=== PATIENT | male | born 1995 | race American Indian/Alaskan Native ===

== ENCOUNTER 2017-12-26 00:25 | Emergency (ER) | payer SELFPAY ==
[2017-12-26 02:05] VITALS: BP 109/55
[2017-12-26] MEDS ORDERED: TYLENOL PO ONE (02:05)
== END 2017-12-26 04:55 | disposition left against medical advice (07) ==
LOC: ED 00:25
DX: G43.909 Migraine, unspecified, not intractable, without status migrainosus (principal); Z53.21 Procedure and treatment not carried out due to patient leaving prior to being seen by health care provider

== ENCOUNTER 2019-05-19 02:08 | Emergency (ER) | payer OTHER ==
[2019-05-19 02:17] VITALS: BP 119/67
[2019-05-19] MEDS ORDERED: ACETAMINOPHEN 500 MG TAB PO ONE (03:15)
[2019-05-19 05:23] LABS: Bilirubin,Urine NEG (Negative); Blood,Urine NEG (Negative); Color,Urine Yellow (Yellow); Mucus,Urine FEW /HPF; Protein,Urine <15 mg/dL mg/dL (Negative)
--- NOTE | 2019-05-19 05:50 | Emergency Department Report ---
ED General Adult HPI - General Chief complaint: Pain General Stated complaint: HEADACHE,BODY PAIN, COLD X 3DAYS Source: patient Mode of arrival: Ambulatory Limitations: No Limitations - History of Present Illness Initial comments: Patient is a 24-year-old -[place] male with no past medical history who presents to the ED with complaint of acute onset persistent severe diffuse body aches and pains, chills, headache, low back pain, rule out of appetite for the last 2 days. Patient denies dizziness, chest pain, shortness of breath, nasal and sinus congestion, sore throat, cough, abdominal pain, dysuria, urinary frequency and urgency or hematuria. MD Complaint: Body aches, chills, low back pain, headache -: Sudden, days(s) (2) Location: head, back Radiation: back Severity scale (0 -10): 3 Quality: aching, sharp Consistency: constant Improves with: none Worsens with: none Associated Symptoms: denies other symptoms, fever/chills, headaches, loss of appetite, malaise. denies: confusion, chest pain, cough, diaphoresis, nausea/vomiting, rash, seizure, shortness of breath, syncope, weakness Treatments Prior to Arrival: NSAID - Related Data Previous Rx's Medication Instructions Recorded Last Taken Type Cyclobenzaprine [Flexeril] 10 mg PO Q8H PRN #15 tablet 05/19/19 Unknown Rx Ibuprofen [Motrin] 800 mg PO Q8HR PRN #20 tablet 05/19/19 Unknown Rx Ondansetron [Zofran Odt] 4 mg PO Q6HR PRN #15 tab.rapdis 05/19/19 Unknown Rx Allergies Allergy/AdvReac Type Severity Reaction Status Date / Time No Known Allergies Allergy Unverified 12/26/17 01:59 ED Review of Systems ROS: Stated complaint: HEADACHE,BODY PAIN, COLD X 3DAYS Other details as noted in HPI Constitutional: chills, fever, malaise, weakness Eyes: denies: eye pain, eye discharge, vision change ENT: denies: ear pain, throat pain, dental pain, congestion Respiratory: denies: cough, shortness of breath, wheezing Cardiovascular: denies: chest pain, palpitations Endocrine: no symptoms reported Gastrointestinal: denies: abdominal pain, nausea, vomiting, diarrhea Genitourinary: denies: urgency, dysuria Musculoskeletal: back pain, arthralgia, myalgia. denies: joint swelling Skin: denies: rash, lesions Neurological: headache. denies: weakness, paresthesias Psychiatric: denies: anxiety, depression Hematological/Lymphatic: denies: easy bleeding, easy bruising ED Past Medical Hx - Past Medical History Hx Asthma: Yes Additional medical history: migraines - Social History Smoking Status: Never Smoker Substance Use Type: None - Medications Home Medications: Home Medications Medication Instructions Recorded Confirmed Last Taken Type Cyclobenzaprine [Flexeril] 10 mg PO Q8H PRN #15 tablet 05/19/19 Unknown Rx Ibuprofen [Motrin] 800 mg PO Q8HR PRN #20 tablet 05/19/19 Unknown Rx Ondansetron [Zofran Odt] 4 mg PO Q6HR PRN #15 tab.rapdis 05/19/19 Unknown Rx ED Physical Exam - General Limitations: No Limitations General appearance: alert, in no apparent distress - Head Head exam: Present: atraumatic, normocephalic, normal inspection - Eye Eye exam: Present: normal appearance, PERRL, EOMI Pupils: Present: normal accommodation - ENT ENT exam: Present: normal exam, normal orophraynx, mucous membranes moist, TM's normal bilaterally, normal external ear exam - Neck Neck exam: Present: normal inspection, full ROM - Respiratory Respiratory exam: Present: normal lung sounds bilaterally. Absent: respiratory distress, wheezes, rhonchi, chest wall tenderness, decreased breath sounds, prolonged expiratory - Cardiovascular Cardiovascular Exam: Present: regular rate, normal rhythm, normal heart sounds. Absent: systolic murmur, diastolic murmur, rubs, gallop - GI/Abdominal GI/Abdominal exam: Present: soft, normal bowel sounds. Absent: tenderness, guarding, hyperactive bowel sounds, hypoactive bowel sounds, organomegaly - Rectal Rectal exam: Present: deferred - Extremities Exam Extremities exam: Present: normal inspection, full ROM, normal capillary refill - Back Exam Back exam: Present: normal inspection, full ROM, muscle spasm, paraspinal tenderness. Absent: tenderness - Neurological Exam Neurological exam: Present: alert, oriented X3, CN II-XII intact, normal gait, reflexes normal - Psychiatric Psychiatric exam: Present: normal affect, normal mood - Skin Skin exam: Present: warm, dry, intact, normal color. Absent: rash ED Course Vital Signs 05/19/19 05/19/19 05/19/19 02:15 03:15 04:15 Temperature 98.5 F Pulse Rate 82 Respiratory 18 16 16 Rate Blood Pressure 119/67 O2 Sat by Pulse 97 Oximetry - Reevaluation(s) Reevaluation #1: 05/19/19 05:51 This is a 24-year-old male who presented to the ED with flulike symptoms characterized by diffuse body aches and pains, low back pain, lack of appetite, chills and headache for the last 2 days. In the ED, patient is alert and oriented 3 and is not in distress with normal vital signs. Patient was treated for pain in the ED and urinalysis test results are nonactionable. Patient was discharged home on medications for pain and advised to follow-up with his primary care physician in 7-10 days for reevaluation, or return to the ED immediately if symptoms get worse. ED Medical Decision Making - Medical Decision Making This is a 24-year-old male who presented to the ED with flulike symptoms characterized by diffuse body aches and pains, low back pain, lack of appetite, chills and headache for the last 2 days. In the ED, patient is alert and oriented 3 and is not in distress with normal vital signs. Patient was treated for pain in the ED and urinalysis test results are nonactionable. Patient was discharged home on medications for pain and advised to follow-up with his primary care physician in 7-10 days for reevaluation, or return to the ED immediately if symptoms get worse. - Differential Diagnosis Flu like; muscle spasms; Muscle strain; Low back pain Critical care attestation.: If time is entered above; I have spent that time in minutes in the direct care of this critically ill patient, excluding procedure time. ED Disposition Clinical Impression: Spasm of muscle of lower back, Flu-like symptoms Disposition: DC-01 TO HOME OR SELFCARE Is pt being admited?: No Does the pt Need Aspirin: No Condition: Stable Instructions: Muscle Spasm (ED), Acute Low Back Pain (ED) Additional Instructions: Take medications with food, drink plenty of fluids and follow-up with your primary care physician in 7-10 days for reevaluation. Return to the ED immediately if symptoms get worse. Prescriptions: Cyclobenzaprine [Flexeril] 10 mg PO Q8H PRN #15 tablet PRN Reason: Muscle Spasm Ibuprofen [Motrin] 800 mg PO Q8HR PRN #20 tablet PRN Reason: Pain , Severe (7-10) Ondansetron [Zofran Odt] 4 mg PO Q6HR PRN #15 tab.rapdis PRN Reason: Nausea Referrals: PRIMARY CARE,MD [Primary Care Provider] - 3-5 Days Forms: Work/School Release Form(ED) Time of Disposition: 05:46 Print Language: AMHARIC
== END 2019-05-19 05:50 | disposition home or self-care (01) ==
LOC: ED 02:08
DX: M62.830 Muscle spasm of back (principal); J45.909 Unspecified asthma, uncomplicated; G43.909 Migraine, unspecified, not intractable, without status migrainosus; Z79.899 Other long term (current) drug therapy
CPT/HCPCS: 81001

== ENCOUNTER 2019-05-27 17:11 | Emergency (ER) | payer SELFPAY ==
[2019-05-27 17:42] VITALS: BP 105/68
== END 2019-05-27 17:16 | disposition left against medical advice (07) ==
LOC: ED 17:11
DX: M54.5 Low back pain (principal); Z53.21 Procedure and treatment not carried out due to patient leaving prior to being seen by health care provider

== ENCOUNTER 2021-01-17 22:26 | Emergency (ER) | payer SELFPAY ==
[2021-01-18 00:09] VITALS: BP 120/44
[2021-01-18] MEDS ORDERED: NEOMY 3.5 MG/BACIT 400 UNITS/POLY B 5000 UNITS/GM OINT PACKET TP ONE (01:19)
--- NOTE | 2021-01-18 01:24 | Emergency Department Report ---
ED General Adult HPI - General Chief complaint: Wound/Laceration Stated complaint: LACERATION RT HAND Time Seen by Provider: 01/18/21 01:02 Source: patient Mode of arrival: Ambulatory Limitations: No Limitations - History of Present Illness Initial comments: 25-year-old [id number] male patient presents emergency department with complaints of laceration to his right hand occurring a few hours ago. Patient states he excellently cut himself while using a knife. Tetanus is up-to-date. Denies wrist pain, paresthesias, numbness, weakness, foreign body sensation. Denies all other complaints at this time. - Related Data Previous Rx's Medication Instructions Recorded Last Taken Type Ondansetron [Zofran Odt] 4 mg PO Q6HR PRN #15 tab.rapdis 05/19/19 Unknown Rx Cyclobenzaprine [Flexeril 10 MG 10 mg PO Q8H PRN #15 tablet 02/01/20 Unknown Rx TAB] Doxycycline Hyclate [Doxycycline 100 mg PO Q12HR #20 tab 02/01/20 Unknown Rx Hyclate TAB] Ibuprofen [Motrin 800 MG tab] 800 mg PO Q8HR PRN #20 tablet 02/01/20 Unknown Rx Allergies Allergy/AdvReac Type Severity Reaction Status Date / Time No Known Allergies Allergy Verified 02/01/20 08:20 ED Review of Systems ROS: Stated complaint: LACERATION RT HAND Other details as noted in HPI Other: GENERAL: Negative for fever. CARDIOVASCULAR: Negative for chest pain. PULMONARY: Negative for shortness of breath. GASTROINTESTINAL: Negative for abdominal pain. MUSCULOSKELETAL: Negative for back pain. NEUROLOGICAL: Negative for headache. INTEGUMENTARY: Positive for laceration. ED Past Medical Hx - Past Medical History Previous Medical History?: Yes Hx GERD: Yes Hx Asthma: Yes Additional medical history: migraines - Surgical History Past Surgical History?: No - Social History Smoking Status: Never Smoker Substance Use Type: None - Medications Home Medications: Home Medications Medication Instructions Recorded Confirmed Last Taken Type Ondansetron [Zofran Odt] 4 mg PO Q6HR PRN #15 tab.rapdis 05/19/19 Unknown Rx Cyclobenzaprine [Flexeril 10 MG 10 mg PO Q8H PRN #15 tablet 02/01/20 Unknown Rx TAB] Doxycycline Hyclate [Doxycycline 100 mg PO Q12HR #20 tab 02/01/20 Unknown Rx Hyclate TAB] Ibuprofen [Motrin 800 MG tab] 800 mg PO Q8HR PRN #20 tablet 02/01/20 Unknown Rx ED Physical Exam - General Limitations: No Limitations - Other Other exam information: General: Awake, appropriately interactive, no acute distress. Neck: Supple. Full range of motion intact. Cardiovascular: Normal peripheral perfusion. Pulmonary: No respiratory distress. Patient is speaking normally without use of accessory muscles. Skin: 1 cm horizontal laceration involving skin and subcutaneous tissue along the dorsal aspect of the right hand, just proximal to the right 2nd MCP joint. Wound edges are well approximated. Good hemostasis. No evidence of retained foreign body. Active and passive range of motion intact with and without resistance in all directions. Distal neurovascular and motor/sensory function i ntact. Neurological: No facial asymmetry. Speech is clear. Follows commands. Patient is alert and oriented. Musculoskeletal: Moves all four extremities spontaneously with normal range of motion. Psych: Cooperative. Appropriate mood and affect. ED Course Vital Signs 01/17/21 23:59 Temperature 98.2 F Pulse Rate 49 L Respiratory 18 Rate Blood Pressure 120/44 O2 Sat by Pulse 100 Oximetry - Procedure Description Procedures done: Verbal consent was obtained from the patient. The area was prepped and draped in sterile fashion. The area was cleansed thoroughly using normal saline and Betadine. Approximately 2 mL of Lidocaine 2% was infiltrated along the wound edges. Two 4-0 Prolene sutures were placed in an interrupted fashion. Antibiotic ointment, wound dressing, and finger splint applied post procedure. Patient tolerated well without complications. ED Medical Decision Making - Medical Decision Making Differential diagnosis including but not limited to: laceration, abrasion, tendon injury, neurovascular injury Patient presents to the emergency department with complaints of an accidental laceration to his right hand occurring tonight. Tetanus is up-to-date. No clinical evidence to suggest retained foreign body, tendon injury, or neurovascular injury. Laceration repaired without complications. See procedure note for details. Patient will be discharged home with finger splint to help maintain suture placement and instructed to follow-up with primary care provider for suture removal in 10 to 14 days. Patient expressed understanding and is agreeable to plan of care. Wound care precautions discussed. Strict return precautions provided. Repeat exam is unremarkable and benign. History, exam, diagnostic testing, and current condition do not suggest worrisome pathology to warrant further testing, continued ED treatment, admission, or surgical evaluation at this point. Given the low probability of a significant medical illness, it would be more likely to result in harm than benefit to perform further testing at this stage. Discussed findings, presumptive diagnosis, need for follow-up and specific signs/symptoms that should prompt immediate return to the emergency department. Instructions were explained in detail to the patient in addition to giving written discharge information. Patient expressed understanding and was given the opportunity to ask questions, all of which were satisfactorily answered prior to discharge home. Critical care attestation.: If time is entered above; I have spent that time in minutes in the direct care of this critically ill patient, excluding procedure time. ED Disposition Clinical Impression: Finger laceration Qualifiers: Encounter type: initial encounter Finger: index finger Damage to nail status: without damage Foreign body presence: without foreign body Laterality: right Qualified Code(s): S61.210A - Laceration without foreign body of right index finger without damage to nail, initial encounter Disposition: TO HOME OR SELFCARE Is pt being admited?: No Does the pt Need Aspirin: No Condition: Stable Instructions: Laceration Care, Adult, [id number] Additional Instructions: Take Tylenol every 4 hours and Motrin every 8 hours as needed for pain. Apply Neosporin to affected area 3 times daily. Keep wound clean and covered. Change dressing daily. Wear finger splint for the next 2-3 days to help promote wound healing and preserve suture placement. Follow-up with primary care provider in 10 to 14 days for suture removal. Call tomorrow to schedule an appointment. Return to the emergency department immediately for new or worsening symptoms. Specifically, return to the emergency department immediately for fever, redness, swelling, drainage, or any other concerns. Referrals: [facility] [Provider Group] - 3-5 Days Time of Disposition: 01:24
== END 2021-01-18 01:45 | disposition home or self-care (01) ==
LOC: ED 22:26
DX: S61.210A Laceration without foreign body of right index finger without damage to nail, initial encounter (principal); J45.909 Unspecified asthma, uncomplicated; G43.909 Migraine, unspecified, not intractable, without status migrainosus; Z98.890 Other specified postprocedural states; Z79.899 Other long term (current) drug therapy; W26.0XXA Contact with knife, initial encounter; Y93.89 Activity, other specified; Y92.89 Other specified places as the place of occurrence of the external cause; Y99.8 Other external cause status
CPT/HCPCS: 99282

== ENCOUNTER 2021-01-29 14:25 | Emergency (ER) | payer SELFPAY ==
--- NOTE | 2021-01-29 15:15 | Emergency Department Report ---
Suture/Staple Removal - HPI Chief Complaint: Skin/Abscess/Foreign Body Stated Complaint: SUTURE REMOVAL Time Seen by Provider: 01/29/21 15:08 When Sutures or Ariadna Placed: 8-10 Days Ago ED Review of Systems ROS: Stated complaint: SUTURE REMOVAL Other details as noted in HPI Comment: All other systems reviewed and negative ED Past Medical Hx - Past Medical History Previous Medical History?: Yes Hx GERD: Yes Hx Asthma: Yes Additional medical history: migraines - Surgical History Past Surgical History?: No - Social History Smoking Status: Never Smoker Substance Use Type: None - Medications Home Medications: Home Medications Medication Instructions Recorded Confirmed Last Taken Type Ondansetron [Zofran Odt] 4 mg PO Q6HR PRN #15 tab.rapdis 05/19/19 Unknown Rx Cyclobenzaprine [Flexeril 10 MG 10 mg PO Q8H PRN #15 tablet 02/01/20 Unknown Rx TAB] Doxycycline Hyclate [Doxycycline 100 mg PO Q12HR #20 tab 02/01/20 Unknown Rx Hyclate TAB] Ibuprofen [Motrin 800 MG tab] 800 mg PO Q8HR PRN #20 tablet 02/01/20 Unknown Rx Suture Removal Exam - Exam General: Vital signs noted. No distress. Alert and acting appropriately. Wound: No Pathologic Erythema, No Tenderness, No Drainage, No Pus, No Wound Dehiscence Other Systems: All other systems reviewed and are unremarkable. ED Course Vital Signs 01/29/21 14:30 Temperature 98.3 F Pulse Rate 83 Respiratory 17 Rate Blood Pressure 135/88 [Right] O2 Sat by Pulse 97 Oximetry ED Recheck MDM - Differential Diagnosis Suture/Staple Removal Critical care attestation.: If time is entered above; I have spent that time in minutes in the direct care of this critically ill patient, excluding procedure time. ED Disposition Clinical Impression: Visit for suture removal Disposition: DC-01 TO HOME OR SELFCARE Is pt being admited?: No Does the pt Need Aspirin: No Condition: Stable Instructions: Wound Closure Removal, Care After Referrals: PRIMARY CARE, [Primary Care Provider] - 3-5 Days
[2021-01-29 15:40] VITALS: BP 132/78
== END 2021-01-29 15:40 | disposition home or self-care (01) ==
LOC: ED 14:25
DX: S61.210D Laceration without foreign body of right index finger without damage to nail, subsequent encounter (principal); K21.9 Gastro-esophageal reflux disease without esophagitis; I10 Essential (primary) hypertension; Z79.899 Other long term (current) drug therapy; X58.XXXD Exposure to other specified factors, subsequent encounter